=== PATIENT | female | born 1990 | race Caucasian/White ===

== ENCOUNTER 2018-03-03 13:03 | Emergency (ER) | payer OTHER ==
[~2018-03-03] VITALS: Ht 182.9 cm; Wt 100.9 kg
[~2018-03-03 13:03] MED LIST: PREN1TAB49
[2018-03-03 13:04] VITALS: BP 136/62; PULSE 65; RESP 18; Ht 182.9 cm; Wt 100.9 kg
[2018-03-03] MEDS ORDERED: IBUP-1542 PO (13:37)
--- NOTE | 2018-03-03 13:41 | ERD ---
ER Documentation Chief Complaint Chief Complaint sore throat x 1 week HPI Patient is a 27-year-old female who presents with a sore throat. She had a sore throat which started a few days ago. Her and child now have similar. She has tried Chloraseptic spray and ibuprofen. She has no fever. She has no difficulty breathing. ROS All systems reviewed and are negative except as per history of present illness. Medications Home Meds Active Scripts Ibuprofen* (Motrin*) 600 Mg Tab, 600 MG PO Q6H PRN for PAIN AND OR ELEVATED TEMP, #30 TAB Prov:RACHEAL STRONG MD 03/03/18 Reported Medications Vits W-Ca,Fe,Fa(<1MG) () 1 Tab Tablet 09/01/10 Allergies Allergies: Coded Allergies: No Known Allergy (Verified , 06/19/14) PMhx/Soc Hx Alcohol Use: No Hx Substance Use: No Hx Tobacco Use: Yes FmHx Family History: No diabetes Physical Exam Vitals Vital Signs Date Temp Pulse Resp B/P (MAP) Pulse Ox O2 O2 Flow FiO2 Time Delivery Rate 03/03/18 97.7 65 18 136/62 98 13:04 (86) Physical Exam Const: No acute distress Head: Atraumatic Eyes: Normal Conjunctiva ENT: Mild erythema without signs of pus or swelling to the tonsils, no stridor Procedures/MDM Patient is a 27-year-old female who presents with a sore throat. I believe this is a viral pharyngitis. The patient will be given a prescription for ibuprofen. I do not believe antibiotics are indicated. I see no signs of peritonsillar abscess, retropharyngeal abscess, or epiglottitis. Departure Diagnosis: Primary Impression: Sore throat Condition: Fair Patient Instructions: Self-Care for Sore Throats Referrals: Your doctor Additional Instructions: Call your primary care doctor TOMORROW for an appointment during the next 1-2 days.See the doctor sooner or return here if your condition worsens before your appointment time. RACHEAL STRONG MD Mar 03, 2018 13:41
== END 2018-03-03 13:45 | disposition home or self-care (01) ==
LOC: E/R 13:03
DX: J02.9 Acute pharyngitis, unspecified (principal); Z87.891 Personal history of nicotine dependence
CPT/HCPCS: 99282

== ENCOUNTER 2018-03-16 19:44 | Emergency (ER) | payer OTHER ==
[~2018-03-16] VITALS: Ht 182.9 cm; Wt 99.5 kg
[~2018-03-16 19:44] MED LIST changes: +IBUP-1542 PO
[2018-03-16 19:51] VITALS: BP 142/65; PULSE 72; RESP 18; Ht 182.9 cm; Wt 99.5 kg
--- NOTE | 2018-03-16 22:54 | ERD ---
ER Documentation Chief Complaint Chief Complaint pain/wound left lower leg x 1 week, states went dancing with dancing shoes HPI 27-year-old female presents here in emergency department for a wound on the left lower leg area, has had it for a week, now is red and swollen, complains of pain throbbing pain, 6/10 scale, as was upon touching the area. Patient was dancing today and using dancing shoes, was rubbing on it, not complaining of pain. Patient denies any direct trauma reinjury on affected area. Patient denies any fever or chills. ROS All systems reviewed and are negative except as per history of present illness. Medications Home Meds Active Scripts Ibuprofen* (Motrin*) 600 Mg Tab, 600 MG PO Q6H PRN for PAIN AND OR ELEVATED TEMP, #30 TAB Prov:RACHEAL STRONG MD 03/03/18 Reported Medications Vits W-Ca,Fe,Fa(<1MG) () 1 Tab Tablet 09/01/10 Allergies Allergies: Coded Allergies: No Known Allergy (Verified , 06/19/14) PMhx/Soc Medical and Surgical Hx: pt denies Medical Hx, pt denies Surgical Hx Hx Alcohol Use: No Hx Substance Use: No Hx Tobacco Use: No Smoking Status: Never smoker FmHx Family History: No diabetes, No coronary disease, No other Physical Exam Vitals Vital Signs Date Temp Pulse Resp B/P (MAP) Pulse Ox O2 O2 Flow FiO2 Time Delivery Rate 03/16/18 97.5 72 18 142/65 98 19:51 (90) Physical Exam GENERAL: The patient is well developed and appropriate for usual state of health, in no apparent distress. CHEST: Clear to auscultation bilaterally. There are no rales, wheezes or rhonchi. HEART: Regular rate and rhythm. No murmurs, clicks, rubs or gallops. No S3 or S4. ABDOMEN: Soft, nontender and nondistended. Good bowel sounds. No rebound or guarding. No gross peritonitis. No gross organomegaly or masses. No Robledo sign or McBurney point tenderness. BACK: No midline or flank tenderness. EXTREMITIES: Equal pulses bilaterally. There is no peripheral clubbing, cyanosis or edema. No focal swelling or erythema. Full range of motion. Grossly neurovascularly intact. NEURO: Alert and oriented. Cranial nerves 2-12 intact. Motor strength in all 4 extremities with 5/5 strength. Sensation grossly intact. Normal speech and gait. SKIN: There is no apparent rash or petechia. The skin is warm and dry. HEMATOLOGIC AND LYMPHATIC: There is no evidence of excessive bruising or lymphedema. No gross cervical, axillary, or inguinal lymphadenopathy. Results 24 hrs Current Medications Medications Dose Sig/Grace Start Time Status Last (Trade) Ordered Route PRN Stop Time Admin Dose Reason Admin Ibuprofen 600 mg ONCE ONCE 03/16/18 03/16/18 (Motrin) PO 23:00 22:40 03/16/18 23:01 Patient was given medication for pain here in emergency department, after treatment, patient verbalized feeling much better. Patient's pain is improved. Procedures/MDM Medical Decision Making: Patient's pain is most likely consistent with infected abrasion with ankle sprain. There is no suspicion for neurovascular compromise. Patient has intact sensation and circulation of the affected extremity. There is low suspicion for septic arthritis. Patient does not have any fever. Radiology exams of the affected area not indicated at this time. Disposition: Home. Patient is given prescription for ibuprofen for pain, Keflex . Patient was advised to elevate the affected area and apply ice on affected area. Patient was advised that if symptoms are worse, numbness, tingling, high fever, unable to move joint, worsening symptoms, to return to emergency department immediately. Otherwise, patient is advised to follow up with the primary care doctor in 5-7 days for reevaluation of symptoms. Disclaimer: Inadvertent spelling and grammatical errors are likely due to EHR/dictation software use and do not reflect on the overall quality of patient care. Also, please note that the electronic time recorded on this note does not necessarily reflect the actual time of the patient encounter. Departure Diagnosis: Primary Impression: Infected abrasion Additional Impression: Ankle sprain Encounter type: initial encounter Involved ligament of ankle: unspecified ligament Laterality: left Qualified Codes: S93.402A - Sprain of unspecified ligament of left ankle, initial encounter Condition: Stable Patient Instructions: Treating Ankle Sprains Additional Instructions: Patient is given prescription for ibuprofen for pain, Keflex . Patient was advised to elevate the affected area and apply ice on affected area. Patient was advised that if symptoms are worse, numbness, tingling, high fever, unable to move joint, worsening symptoms, to return to emergency department immediately. Otherwise, patient is advised to follow up with the primary care doctor in 5-7 days for reevaluation of symptoms. MIGUELITO APRKS NP Mar 16, 2018 22:54
[2018-03-16] MEDS ORDERED: CEPH-443 PO (22:55)
[2018-03-16] MEDS ORDERED: IBUP-1542 PO (22:55)
[2018-03-16] MEDS ORDERED: IBUPROFEN 600 MG TAB PO ONE (23:00)
== END 2018-03-16 23:06 | disposition home or self-care (01) ==
LOC: FTE 19:44
DX: S80.812A Abrasion, left lower leg, initial encounter (principal); L08.89 Other specified local infections of the skin and subcutaneous tissue; X50.9XXA Other and unspecified overexertion or strenuous movements or postures, initial encounter; Y92.9 Unspecified place or not applicable
CPT/HCPCS: Z7502; Z7610; 99283

== ENCOUNTER 2018-04-17 10:58 | Emergency (ER) | payer OTHER ==
[~2018-04-17] VITALS: Ht 182.9 cm; Wt 84.1 kg
[~2018-04-17 10:58] MED LIST changes: +CEPH-443 PO
[2018-04-17] MEDS ORDERED: SOD CHLORIDE 0.9% 1,000 ML IV STA (11:15)
[2018-04-17 11:21] VITALS: Ht 182.9 cm; Wt 84.1 kg
[2018-04-17] MEDS ORDERED: KETOROLAC 30 MG INJ IV STA (11:21)
[2018-04-17] MEDS ORDERED: LORAZEPAM 2 MG INJ IV ONE (11:30)
[2018-04-17] MEDS ORDERED: SOD CHLORIDE 0.9% 100 ML ONE (12:08)
[2018-04-17] MEDS ORDERED: IOHEXOL 100 ML ONE (12:08)
--- NOTE | 2018-04-17 12:33 | ERD ---
ER Documentation Chief Complaint Chief Complaint SUDDEN [id number] CONSTANT HPI This is a 28-year-old female with no past medical history. She states that for the past 24 hours she has been having intermittent chest pain which she desc ribes as a sharp shooting pain. She denies any chest pressure. She states she is been having shortness of breath at present at rest. She states the shortness of breath has progressively worsened. She stated she awoke this morning with a sharp shooting pain that was worse with inspiration. She started to brush her teeth and felt lightheaded and dizzy with palpitations. The patient was going t o drive herself to the emergency department but her symptoms worsened and phoned 911. When EMS arrived they indicated that the patient was in SVT. A Valsalva maneuver was performed and the patient spontaneously converted. The patient denies any recent travel or prolonged immobilization. She has no calf tenderness or swelling of her lower extremities. The patient is not on oral contraceptive pills. The patient denies any fever shaking or chills. She has no hemoptysis no hematemesis no melanotic stools. ROS All systems reviewed and are negative except as per history of present illness. Medications Home Meds Active Scripts Cephalexin* (Keflex*) 500 Mg Capsule, 500 MG PO QID for 10 Days, CAP Prov:MIGUELITO PARKS NP 03/16/18 Ibuprofen* (Motrin*) 600 Mg Tab, 600 MG PO Q6H PRN for PAIN AND OR ELEVATED TEMP , #30 TAB Prov:MIGUELITO PARKS NP 03/16/18 Ibuprofen* (Motrin*) 600 Mg Tab, 600 MG PO Q6H PRN for PAIN AND OR ELEVATED TEMP, #30 TAB Prov:RACHEAL STRONG MD 03/03/18 Reported Medications Vits W-Ca,Fe,Fa(<1MG) () 1 Tab Tablet 09/01/10 Allergies Allergies: Coded Allergies: No Known Allergy (Verified , 06/19/14) PMhx/Soc Medical and Surgical Hx: pt denies Surgical Hx Hx Alcohol Use: No Hx Substance Use: Yes (marijuana) Hx Tobacco Use: No Smoking Status: Never smoker Physical Exam Vitals Vital Signs Date Temp Pulse Resp B/P (MAP) Pulse Ox O2 O2 Flow FiO2 Time Delivery Rate 04/17/18 98.0 78 20 128/77 100 11:21 (94) Physical Exam Constitutional:Well-developed. Well-nourished. Patient appeared anxious. HEENT:Normocephalic. Atraumatic.Pupils were equal round reactive to light. Moist mucous membranes.No tonsillar exudates. Neck: No nuchal rigidity. No lymphadenopathy. No posterior cervical spine tender ness or step-offs. Respiratory: Tachypneic but not using accessory muscles of respiration.Lungs were clear to auscultation bilaterally. No rhonchi. No rales. No wheezing. Cardiovascular: Regular rate regular rhythm.No murmurs. No rubs were appreciated.S1, S2 normal. Distal pulses are palpable 2+ bilaterally. Bilateral reproducible chest wall tenderness with no crepitus no ecchymosis no flail chest GI: Abdomen was soft. Nontender. Non Distended. No pulsatile abdominal masses or bruits. No rebound. No guarding. Bowel sounds were present and normal. Muscle skeletal: Full range of motion of both the upper and lower extremities bilaterally.Normal muscle tone.No assymetrical calf tenderness or swelling. Skin: No petechia, no purpura. No lesions on the palms or the soles of the feet. No maculopapular rash. NEURO: Patient was alert, awake, orientated x3.No facial droop. Gait observed and normal with no ataxia.Speech had regular rate and rhythm. No focal neurological deficits. Result Diagram: 04/17/18 1205 Results 24 hrs Laboratory Tests Test 04/17/18 11:32 04/17/18 12:05 POC Beta HCG, Qualitative NEGATIVE White Blood Count 8.1 10^3/ul Red Blood Count 3.91 10^6/ul Hemoglobin 10.8 g/dl Hematocrit 34.0 % Mean Corpuscular Volume 87.0 fl Mean Corpuscular Hemoglobin 27.6 pg Mean Corpuscular Hemoglobin Concent 31.8 g/dl Red Cell Distribution Width 13.6 % Platelet Count 327 10^3/UL Mean Platelet Volume 9.8 fl Immature Granulocytes % 0.400 % Neutrophils % 56.8 % Lymphocytes % 32.5 % Monocytes % 8.7 % Eosinophils % 1.2 % Basophils % 0.4 % Nucleated Red Blood Cells % 0.0 /100WBC Immature Granulocytes # 0.030 10^3/ul Neutrophils # 4.6 10^3/ul Lymphocytes # 2.6 10^3/ul Monocytes # 0.7 10^3/ul Eosinophils # 0.1 10^3/ul Basophils # 0.0 10^3/ul Nucleated Red Blood Cells # 0.0 10^3/ul Prothrombin Time 12.5 Sec Prothrombin Time Ratio 1.0 INR International Normalized Ratio 0.92 Activated Partial Thromboplast Time 27.8 Sec Current Medications Medications Dose Sig/Grace Start Time Status Last (Trade) Ordered Route PRN Stop Time Admin Dose Reason Admin Sodium 1,000 ml @ Q1H STAT 04/17/18 DC 04/17/18 Chloride 1,000 mls/hr IV 11:15 11:36 04/17/18 12:14 Lorazepam 1 mg ONCE ONCE 04/17/18 DC 04/17/18 (Ativan) IV 11:30 11:36 04/17/18 11:31 Ketorolac 30 mg ONCE STAT 04/17/18 DC 04/17/18 Tromethamine IV 11:21 11:37 (Toradol) 04/17/18 11:23 Sodium 100 ml @ ud STK-MED 04/17/18 DC 04/17/18 Chloride ONCE .ROUTE 12:08 12:22 04/17/18 12:09 Iohexol 100 ml @ ud STK-MED 04/17/18 DC 04/17/18 ONCE .ROUTE 12:08 12:22 04/17/18 12:09 Procedures/MDM The patient presented to the emergency department complaining of chest pain. My clinical evaluation and workup was to distinguish minor causes of chest pain f rom acute life threatening cardiopulmonary causes such as myocardial infarction, pulmonary embolism, aortic dissection, esophageal rupture, cardiac tamponade, The patient was placed on a cross tie cutter, continuous pulse oximetry and IV access established by nursing staff. The patient was given IV Toradol as well as Ativan as the patient appeared very anxious. The patient appear to be in intermittent pretest probability according to the Wells criteria for pulmonary embolism. My clinical suspicion was high and therefore I did feel is necessary to obtain a CT scan of the chest to rule out f or PE. This was reviewed by the radiologist and indicated the followin Lead EKG tracing ordered and reviewed by myself showed: Normal sinus rhythm of 68 bpm and no arrhythmia. ND interval normal. QRS duration normal. No ST segment elevation No ST segment depression. No changes consistent with acute ischemia. The patient had no cardiac arrhythmia or ectopy while on the cross tie cutter and no recurrence of supraventricular tachycardia The patients chest pain was reproduced by palpation and horizontal flexion of the arms. It was my clinical impression that the pain was a result of inf lammation of the skin and subcutaneous structures of the chest wall causing pleurisy versus myocardial ischemia. I felt the patient had low-risk chest pain and could therefore be safely discharged with close follow-up with a aviation electrician. The patient was discharged home in fair condition. They were instructed to return to the emergency department at any time if there was any worsening of their condition. The patient stated they would follow up with their PCP in the next 24-48 hours to initiate a suitable medication regimen under the care of their PCP as well as to allow their PCP to monitor any drug reactions. The patient was discharged home with prescriptions after they gave informed cons ent to the new medication. They were also fully informed by myself on the adverse effects and adverse drug interactions in order to provide adequate safeguards to prevent possible adverse reactions to medications. Departure Diagnosis: Primary Impression: Pleurisy Additional Impression: Supraventricular tachycardia Condition: DAYANNA Morillo MD Apr 17, 2018 12:33
[2018-04-17 13:30] VITALS: BP 121/86; PULSE 89; RESP 16
[2018-04-17] MEDS ORDERED: IBUP800T48 PO (13:32)
== END 2018-04-17 14:00 | disposition home or self-care (01) ==
LOC: E/R 10:58
DX: I47.1 Supraventricular tachycardia (principal); R09.1 Pleurisy
CPT/HCPCS: 71275; 80053; 81025; 82550; 82553; 84484; 85025; 85610; 85730; 93005; 96374; 96375; J1885; J2060; J7030; Q9967; Z7502; Z7610